=== PATIENT | female | born 1995 | race Native Hawaiian/Other Pacific Islander ===

== ENCOUNTER 2016-05-18 09:39 | Emergency (ER) | payer OTHER ==
[~2016-05-18] VITALS: Ht 162.6 cm; Wt 60.0 kg
[~2016-05-18 09:39] MED LIST: MACR100C2 PO; PREN1CAP7 PO; TERC20CR VAGINAL; ZITH250T PO
[2016-05-18 09:41] VITALS: BP 217/130; PULSE 108; RESP 20; TEMP 98; O2SAT 94
[2016-05-18 09:55] VITALS: BP 107/66; PULSE 96; RESP 16; TEMP 98.6; O2SAT 98
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
[2016-05-18] MEDS ORDERED: ACETAMINOPHEN 325 MG TAB PO ONE (12:15)
== END 2016-05-18 12:44 | disposition home or self-care (01) ==
LOC: NEPA 09:39
DX: S09.22XA Traumatic rupture of left ear drum, initial encounter (principal); S00.432A Contusion of left ear, initial encounter; Y04.2XXA Assault by strike against or bumped into by another person, initial encounter
CPT/HCPCS: 99284

== ENCOUNTER 2016-05-21 12:21 | Emergency (ER) | payer OTHER ==
[~2016-05-21] VITALS: Ht 162.6 cm; Wt 52.0 kg
[~2016-05-21 12:21] MED LIST changes: -MACR100C2 PO; -TERC20CR VAGINAL; -ZITH250T PO
[2016-05-21 12:32] VITALS: BP 93/52; PULSE 68; RESP 18; TEMP 98.9; O2SAT 100
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
== END 2016-05-21 14:16 | disposition home or self-care (01) ==
LOC: PHEFT 12:21
DX: S09.22XD Traumatic rupture of left ear drum, subsequent encounter (principal); Z3A.14 14 weeks gestation of pregnancy; W19.XXXD Unspecified fall, subsequent encounter; Y93.E9 Activity, other interior property and clothing maintenance
CPT/HCPCS: 99282

== ENCOUNTER 2016-11-14 12:17 | Inpatient (IN) | payer MEDICAID, OTHER ==
[2016-11-14] VITALS (65 sets, daily range): BP systolic 89–132; BP diastolic 41–83; PULSE 63–114; RESP 16–18; TEMP 98–98.6; O2SAT 99–100
[~2016-11-14] VITALS: Ht 162.6 cm; Wt 55.0 kg
[2016-11-14] MEDS ORDERED: LACTATED RINGER'S 1000 ML INJ 1,000 ML IV PRN (14:05)
[2016-11-14] MEDS ORDERED: LIDOCAINE HCL 1% 50 ML VIAL INFIL PRN (14:15)
[2016-11-14] MEDS ORDERED: LIDOCAINE HCL 1% 50 ML VIAL I-DERMAL PRN (14:15)
[2016-11-14] MEDS ORDERED: OXYTOCIN 30 UNITS-500ML PREMIX 500 ML IV ONE (14:15)
[2016-11-14] MEDS ORDERED: MINERAL OIL 10 ML VIAL TOPICAL PRN (14:15)
[2016-11-14] MEDS ORDERED: CITRIC ACID-SODIUM CITRATE LIQ 30 ML UDC PO SCH (14:15)
[2016-11-14] MEDS ORDERED: ONDANSETRON HCL 4 MG/2 ML VIAL IV PUSH PRN (14:15)
[2016-11-14] MEDS ORDERED: SODIUM CHLORID 0.9% 500 ML INJ 500 ML IV PRN (14:15)
[2016-11-14] MEDS ORDERED: SODIUM CHLOR 0.9% 1000 ML INJ 1,000 ML IV PRN (14:25)
--- NOTE | 2016-11-14 14:27 | HHI.HP ---
HPI Chief Complaint Contractions Date Seen: Nov 14, 2016 Time Seen: 14:00 Travel History International Travel<30 Days: No Contact w/Intl Traveler<30Days: No Known Affected Area: No History of Present Illness HPI 21 year old Taoism female at 40 weeks using [facility] for care presents complaining contractions no bleeding or leakage heart tones reactive contractions noted regularly Weeks Gestation: 40 Para: 0 : 1 History Social History Alcohol Use: No Tobacco Use: No Substance Abuse: No Allergies-Medications (Allergen,Severity, Reaction): Coded Allergies: No Known Allergies (Unverified , 06/12/16) Home Meds Active Scripts W/O Vit A W/ Fe Fumar (Citranatal [place]) 27-1-260 Mg Cap, 1 CAP PO DAILY for Nutritional Supplement, #60 CAP 5 Refills Prov:Nadia Horne CNM [facility] 05/01/16 Review of Systems General / Constitutional: No: Fever, Weight Gain, Chills, Other Eyes: No: Diploplia, Blurred Vision, Visual changes, Pain, Photophobia HENT: No: Headaches, Vertigo, Lightheadedness Cardiovascular: No: Irregular Rhythm, Chest Pain or Discomfort, Palpitations, Tachycardia, Syncope, Varicosities, Edema, Cyanosis Respiratory: No: Cough, Short of Breath, Other Gastrointestinal: No: Nausea, Vomiting, Diarrhea Genitourinary: No: Decreased Urinary Output, Oliguria Musculoskeletal: No: Limited ROM, Weakness, Cramping, Edema, Pain Skin: No Rash, No Itching, No Dryness, No Lumps, No Change in Pigmentation, No Change in Nails, No Alopecia, No Lesions Neurologic: No: Weakness, Dizziness, Syncope, Focal Abnormalities, Coordination Problem, Headache, Slurred Speech, Seizures Psychiatric: No: Depression, Suicidal Ideations, Homicidal Ideation Endocrine: No: Heat Intolerance, Cold Intolerance, Polydipsia, Polyuria, Other Physical Exam Narrative GENERAL: Well-nourished, well-developed patient. SKIN: Warm and dry. HEAD: Normocephalic and atraumatic. EYES: No scleral icterus. No injection or drainage. ENT: No nasal drainage noted. Mucous membranes pink. Airway patent. NECK: Supple, trachea midline. No JVD. CARDIOVASCULAR: Regular rate and rhythm without murmurs, gallops, or rubs. RESPIRATORY: Breath sounds equal bilaterally. No accessory muscle use. BREASTS: Bilateral exam showed no masses , no retractions, no nipple discharge. ABDOMEN/GI: Abdomen soft, non-tender, bowel sounds present, no rebound, no guarding Gravid to [-39] weeks size Fundal Height: [-39] GENITOURINARY: External Genitalia: intact and normal in appearance BUS glands: [-] Cervix: [-] Dilatation: [-6] Effacement: [-80] Station: [-3] Presentation: [vtx-] Membranes: [intact ] Uterine Contractions: [reg-] FHT's: Category: [-1] Baseline: [-133] Reactive: [yes-] Variability: [mod-] Decels: [-none] EXTREMITIES: No cyanosis or edema. BACK: Nontender without obvious deformity. No CVA tenderness. NEUROLOGICAL: Awake and alert. Motor and sensory grossly within normal limits. Five out of 5 muscle strength in all muscle groups. Normal speech. Caprini VTE Risk Assessment Caprini VTE Risk Assessment: No/Low Risk (score <= 1) Caprini Risk Assessment Model Point Value = 1 Point Value = 2 Point Value = 3 Point Value = 5 Age 41-60 Minor surgery BMI > 25 kg/m2 Swollen legs Varicose veins or History of unexplained or recurrent spontaneous Oral contraceptives or hormone replacement Sepsis (< 1 month) Serious lung disease, including pneumonia (< 1 month) Abnormal pulmonary function Acute myocardial infarction Congestive heart failure (< 1 month) History of inflammatory bowel disease Medical patient at bed rest Age 61-74 Arthroscopic surgery Major open surgery (> 45 min) Laparoscopic surgery (> 45 min) Malignancy Confined to bed (> 72 hours) Immobilizing plaster cast Central venous access Age >= 75 History of VTE Family history of VTE Factor V Leiden Prothrombin [id number] Lupus anticoagulant Anticardiolipin antibodies Elevated serum homocysteine Heparin-induced thrombocytopenia Other congenital or acquired thrombophilia Stroke (< 1 month) Elective arthroplasty Hip, pelvis, or leg fracture Acute spinal cord injury (< 1 month) Prophylaxis Regimen Total Risk Factor Score Risk Level Prophylaxis Regimen 0-1 Low Early ambulation 2 Moderate Order ONE of the following: *Sequential Compression Device (SCD) *Heparin 5000 units SQ BID 3-4 Higher Order ONE of the following medications: *Heparin 5000 units SQ TID *Enoxaparin/Lovenox 40 mg SQ daily (WT < 150 kg, CrCl > 30 mL/min) *Enoxaparin/Lovenox 30 mg SQ daily (WT < 150 kg, CrCl > 10-29 mL/min) *Enoxaparin/Lovenox 30 mg SQ BID (WT < 150 kg, CrCl > 30 mL/min) AND/OR *Sequential Compression Device (SCD) 5 or more Highest Order ONE of the following medications: *Heparin 5000 units SQ TID (Preferred with Epidurals) *Enoxaparin/Lovenox 40 mg SQ daily (WT < 150 kg, CrCl > 30 mL/min) *Enoxaparin/Lovenox 30 mg SQ daily (WT < 150 kg, CrCl > 10-29 mL/min) *Enoxaparin/Lovenox 30 mg SQ BID (WT < 150 kg, CrCl > 30 mL/min) AND *Sequential Compression Device (SCD) Data Data Orders Orders Ob (2e) Additional Admit Info (11/14/16 13:59) Admit To Inpatient (11/14/16 ) Code Status (11/14/16 14:05) Vital Signs (Adult) .Per protocol (11/14/16 14:05) Activity Oob Ad Maru (11/14/16 14:05) Heart (11/14/16 14:05) Amnioinfusion (11/14/16 14:05) Urinary Catheter Management .ONCE (11/14/16 14:05) Diet Npo (11/14/16 Dinner) Lactated Ringer's 1000 Ml Inj (Lr 1000 M (11/14/16 14:05) Lactated Ringer's 1000 Ml Inj (Lr 1000 M (11/14/16 14:05) Sodium Chlorid 0.9% 500 Ml Inj (Ns 500 M (11/14/16 14:15) Sodium Chlor 0.9% 1000 Ml Inj (Ns 1000 M (11/14/16 14:25) Lidocaine 1% Inj (50 Ml) (Xylocaine 1% I (11/14/16 14:15) Citric Acid-Sodium Citrate Liq (Bicitra (11/14/16 14:15) Ondansetron Inj (Zofran Inj) (11/14/16 14:15) Fentanyl Inj (Fentanyl Inj) (11/14/16 14:15) Fentanyl Inj (Fentanyl Inj) (11/14/16 14:15) Complete Blood Count With Diff (11/14/16 14:05) Hold Clot (11/14/16 14:05) Abo/Rh Blood Type (11/14/16 14:05) Urinalysis - C+S If Indicated (11/14/16 14:05) Resp Oxygen Non Rebreathe Mask (11/14/16 ) ^ Epidural / Intrathecal Infus (11/14/16 14:05) Oxytocin 30 Units-500ml Premix (Pitocin (11/14/16 14:15) Lidocaine 1% Inj (50 Ml) (Xylocaine 1% I (11/14/16 14:15) Light Mineral Oil (Muri-Lube Oil) (11/14/16 14:15) Inpatient Certification (11/14/16 ) Assessment/Plan Assessment and Plan Patient is 21-year-old muscle patient is 40 weeks seen Sarina Deleon for care. Presents in labor. She initially seen in OB ED 74 cm. She was monitored for greater than 1 hour and noted to be a repeat exam of 6 cm and status post patient is now going into labor. NST is reactive contractions are noted that we'll admit for labor management Vladimir Almanza II, MD Nov 14, 2016 14:27
[2016-11-14 14:29] LABS: BLOOD, URINE NEG (NEG); COMMENT (UR) CULT NOT INDICATED; CULTURE IF INDICATED CULT NOT INDICATED; GLUCOSE,URINE NEG (NEG); KETONE, URINE NEG (NEG); MUCUS URINE FEW /lpf (OCC); NITRITE,URINE NEG (NEG); SQUAMOUS EPITHELIAL CELL URINE <1 /hpf (0-5); URINE COLOR LIGHT-YELLOW (YELLW/STRAW)
[2016-11-14 14:37] LABS: AUTOMATED NEUTROPHIL # 8.7 TH/MM3 (1.8-7.7); BASOPHIL % 0.2 % (0.0-2.0); EOSINOPHIL # 0.1 TH/MM3 (0-0.4); EOSINOPHIL % 0.5 % (0.0-4.0); HEMATOCRIT 31.6 % (35.0-46.0); LYMPH % 15.1 % (9.0-44.0); LYMPHOCYTE # 1.7 TH/MM3 (1.0-4.8); MEAN CELL VOLUME 84.1 FL (80.0-100.0); MEAN CORPUSCULAR HEMOGLOBIN 26.8 PG (27.0-34.0); MEAN CORPUSCULAR HGB CONC 31.9 % (32.0-36.0); MONO % 7.6 % (0.0-8.0); NEUT % 76.6 % (16.0-70.0); PLATELET COUNT 215 TH/MM3 (150-450); RED BLOOD COUNT 3.76 MIL/MM3 (4.00-5.30); RED CELL DISTRIBUTION WIDTH 14.6 % (11.6-17.2); WHITE BLOOD COUNT 11.4 TH/MM3 (4.0-11.0)
[2016-11-14] MEDS: LACTATED RINGER'S 1000 ML INJ 1,000 ML IV SCH ×2 (14:38→15:28)
[2016-11-14 14:40] LABS: HEMO FLAGS AUTO DIFF
[2016-11-14 15:28] LABS: BANDS 5 % (0-6); EOSINOPHILS 1 % (0-4); METAMYELOCYTES 2 % (0-1); NEUTROPHIL # MANUAL DIFF 8.8 TH/MM3 (1.8-7.7); POLYS (SEG NEUTROPHILS) 70 % (16-70); WBC DIFF SAMPLE 100
[2016-11-14 15:29] LABS: PLATELET ESTIMATE SMEAR NORMAL (NORMAL)
[2016-11-14 15:30] LABS: PLATELET MORPHOLOGY ENLARGED (NORMAL); SCAN/DIFF FINAL DIFF MANUAL
[2016-11-14] MEDS ORDERED: DIPHTH/TETANUS/ACEL PERTUSSIS (BOOSTER) 0.5 ML VIAL/PFS IM ONE (16:00)
[2016-11-14] MEDS ORDERED: MEASLES, MUMPS, RUBELLA VACCINE 0.5 ML VIAL SQ ONE (16:00)
[2016-11-14] MEDS ORDERED: ePHEDrine/NS 25 MG/5 ML SYR ONE (16:17)
[2016-11-14] MEDS ORDERED: fentaNYL 2MCG-BUPIV 0.125% INJ 100 ML ONE (16:17)
[2016-11-14] MEDS ORDERED: OXYTOCIN 30 UNITS-500ML PREMIX 500 ML IV SCH ×2 (18:15→20:45)
[2016-11-14] MEDS ORDERED: ePHEDrine/NS 25 MG/5 ML SYR IV PUSH PRN (19:00)
[2016-11-14] MEDS ORDERED: fentaNYL 2MCG-BUPIV 0.125% 100 ML EPIDURAL SCH (19:00)
[2016-11-14] MEDS ORDERED: DO NOT ADMINISTER ANTICOAGULANTS PRN (19:00)
[2016-11-14] MEDS ORDERED: NO SYSTEM NARCOTICS PRN (19:00)
--- NOTE | 2016-11-14 20:38 | PD.OB.DELI ---
Weeks gestation: 40 Gest age assessed date: Nov 14, 2016 Gest age assessed time: 12:17 Pt started active labor?: Yes Active labor start date: Nov 14, 2016 Active labor start time: 07:00 Medical induction of labor?: No Artificial rupture of membrane: No Anesthesia: Epidural Episiotomy: Midline Vaginal Delivery: Normal Presentation: Occiput anterior Nuchal Cord: x1 Delayed cord clamping (45 sec): Yes Infant: Male, Single Delivery date: Nov 14, 2016 Delivery time: 20:24 One Minute : 8 Five Minute : 9 Weight: 3085 Placenta: Spontaneous delivery Laceration: Episiotomy, 2 deg Repair: Chromic running Estimated blood loss: 200 Vladimir Almanza II, MD Nov 14, 2016 20:38
[2016-11-14] MEDS ORDERED: WITCH HAZEL 50%/GLYCERIN 12.5% 40 PAD JAR TOPICAL PRN (20:45)
[2016-11-14] MEDS ORDERED: ZOLPIDEM TARTRATE 5 MG TAB PO PRN (20:45)
[2016-11-14] MEDS ORDERED: ACETAMINOPHEN 325 MG TAB PO PRN (20:45)
[2016-11-14] MEDS ORDERED: ALUMINUM/MAGNESIUM/SIMETH 30 ML CUP PO PRN (20:45)
[2016-11-14] MEDS ORDERED: SODIUM CHLORIDE 0.9% FLUSH 10 ML FLUSH IV FLUSH PRN (20:45)
[2016-11-14] MEDS ORDERED: BENZOCAINE 20% TOPICAL SPRAY 60 ML CAN TOPICAL PRN (20:45)
[2016-11-14] MEDS ORDERED: ONDANSETRON ODT 4 MG TAB PO PRN (20:45)
[2016-11-14] MEDS ORDERED: DOCUSATE SODIUM 50 MG/SENNA 8.6 MG TAB PO PRN (20:45)
[2016-11-14] MEDS ORDERED: SODIUM CHLORIDE 0.9% FLUSH 10 ML FLUSH IV FLUSH SCH (21:00)
[2016-11-15 07:45] VITALS: BP 94/54; PULSE 83; RESP 18; TEMP 98.2
[2016-11-15] MEDS: IBUPROFEN 600 MG TAB PO PRN ×2 (07:59→20:28)
[2016-11-15] MEDS: oxyCODONE/ACETAMINOPHEN 5 MG/325 MG TAB PO PRN ×2 (07:59→20:28)
--- NOTE | 2016-11-15 09:32 | HHI.OB ---
Subjective Post Day: 1 Remarks day #1. AFVSS overnight. Pain controlled with medications. Decreased lochia. Denies dysuria. No breast tenderness. She is feeding the baby via breast/bottle. Appetite good. No nausea or vomiting. Endorses flatus. No bowel movement. Ambulating well. Denies calf pain, shortness of breath, or cough. Otherwise, she is doing well this morning and has no other complaints. Objective Vitals/I&O Vital Signs Date Time Temp Pulse Resp B/P (MAP) Pulse Ox O2 Delivery O2 Flow Rate FiO2 11/14/16 18:41 16 Objective Remarks GENERAL: Well-nourished, well-developed patient. CARDIOVASCULAR: Regular rate and rhythm without murmurs, gallops, or rubs. RESPIRATORY: Breath sounds equal bilaterally. No accessory muscle use. ABDOMEN/GI: Abdomen soft, non-tender. Fundus: Firm, non-tender at umbilicus. GENITOURINARY: Light to moderate bleeding. EXTREMITIES: No cyanosis or edema, non-tender, without signs of DVT. Medications and IVs Current Medications Medications (Trade) Dose Ordered Sig/[place]ana Route Start Time Stop Time Status Last Admin Lactated Ringer's 1,000 ml @ 125 mls/hr Q8H IV 11/14/16 14:05 11/14/16 15:28 Lactated Ringer's 1,000 ml @ 3,000 mls/hr Q20M PRN IV 11/14/16 14:05 Sodium Chloride 500 ml @ 1,000 mls/hr ONCE PRN IV 11/14/16 14:15 11/15/16 14:14 Sodium Chloride 1,000 ml @ 100 mls/hr Q10H PRN IV 11/14/16 14:25 (Xylocaine 1% Inj (50 ml)) 0.1 ml UNSCH X1 PRN I-DERMAL 11/14/16 14:15 11/17/16 14:14 (Bicitra Liq) 30 ml SYNTHETIC DEPARTMENT SUPERVISOR PO 11/14/16 14:15 11/18/16 14:14 (Zofran Inj) 4 mg Q6H PRN IV PUSH 11/14/16 14:15 (fentaNYL INJ) 50 mcg Q1H PRN IV PUSH 11/14/16 14:15 11/14/16 14:37 (fentaNYL INJ) 100 mcg Q1H PRN IV PUSH 11/14/16 14:15 (Xylocaine 1% Inj (50 ml)) 10 ml UNSCH X1 PRN INFIL 11/14/16 14:15 11/16/16 14:14 (Muri-Lube Oil) 10 ml UNSCH PRN TOPICAL 11/14/16 14:15 11/14/16 20:45 Oxytocin 500 ml @ 1 mls/hr TITRATE IV 11/14/16 18:15 11/14/16 20:42 Miscellaneous Information No systemic narcotics to be given except... UNSCH PRN .XX 11/14/16 19:00 11/15/16 18:59 Miscellaneous Information DO NOT ADMINISTER ANY ANTICOAGUL... UNSCH PRN .XX 11/14/16 19:00 11/15/16 18:59 Fentanyl/ Bupivacaine HCl 100 ml @ 0 mls/hr TITRATE EPIDURAL 11/14/16 19:00 11/14/16 19:09 (ePHEDrine/NS 25 MG/5 ML SYR) 10 mg UNSCH PRN IV PUSH 11/14/16 19:00 11/15/16 18:59 (NS Flush) 2 ml BID IV FLUSH 11/14/16 21:00 11/14/16 21:39 (NS Flush) 2 ml UNSCH PRN IV FLUSH 11/14/16 20:45 (Tylenol) 650 mg Q4H PRN PO 11/14/16 20:45 (Motrin) 600 mg Q6H PRN PO 11/14/16 20:45 11/15/16 07:59 (Percocet 5-325 Mg) 1 tab Q4H PRN PO 11/14/16 20:45 11/15/16 07:59 (Americaine 20% Top Spr) 1 spray Q4H PRN TOPICAL 11/14/16 20:45 (Tucks Pads) 1 applic QID PRN TOPICAL 11/14/16 20:45 (Tila-Colace) 2 tab Q12H PRN PO 11/14/16 20:45 11/15/16 07:59 (Ambien) 5 mg HS PRN PO 11/14/16 20:45 (Mag-Al Plus Susp Liq) 15 ml Q8H PRN PO 11/14/16 20:45 (Zofran Odt) 4 mg Q6H PRN PO 11/14/16 20:45 Assessment/Plan Assessment and Plan 21y/o who is PPD# 1 s/p . -Continue routine care. -Percocet and Motrin PRN pain. -Encouraged OOB. Advised pelvic rest for 6 wks. -Will need a f/u appt. within 6 wks. -Re: ctrl, she is undecided -D/c in 1-2 more days. dw OB attending Eliseo Hamm MD, R2 Nov 15, 2016 09:32
[2016-11-15 18:21] VITALS: BP 109/63; PULSE 83; RESP 19; TEMP 97.1
[2016-11-15 22:28] VITALS: BP 105/65; PULSE 79; RESP 16; TEMP 98.3
[2016-11-16 07:40] VITALS: BP 101/67; PULSE 86; RESP 18; TEMP 98.1
[2016-11-16] MEDS ORDERED: SENN1TAB PO (10:02)
[2016-11-16] MEDS ORDERED: IBUP-232 PO (10:02)
--- NOTE | 2016-11-16 10:03 | HHI.DCPOC ---
Discharge Care Plan Diagnosis: (1) care following vaginal delivery Report Symptoms to Your Doctor -Temperature above 100.5 degrees -Redness, of incision or excessive or foul smelling drainage -Unusual pain or calf pain -Increased vaginal bleeding -Painful or difficulty urinating -Feelings of extreme sadness or anxiety after 2 weeks Goals to Promote Your Health * To prevent worsening of your condition and complications * To maintain your health at the optimal level Directions to Meet Your Goals Take your medications as prescribed Follow your dietary instruction Follow activity as directed Ensure plenty of rest for recovery Drink fluids for hydration Keep your appointments as scheduled Take your immunizations and boosters as scheduled If your symptoms worsen call your PCP, if no PCP go to Urgent Care Center or Emergency Room Smoking is Dangerous to Your Health. Avoid second hand smoke Call the 24-hour crisis hotline for domestic abuse at Eliseo Hamm MD, R2 Nov 16, 2016 10:03
[2016-11-16] MEDS: IBUPROFEN 600 MG TAB PO PRN (12:37)
[2016-11-16] MEDS: oxyCODONE/ACETAMINOPHEN 5 MG/325 MG TAB PO PRN (12:37)
--- NOTE | 2016-11-16 13:17 | HHI.OB ---
Subjective Post Day: 2 Remarks day # 2 s/p vaginal delivery. AFVSS overnight. Pain minimal. Drinking fluids, ambulating to the bathroom. No bowel movement, passing flatus. No other complaints. Objective Vitals/I&O Vital Signs Date Time Temp Pulse Resp B/P (MAP) Pulse Ox O2 Delivery O2 Flow Rate FiO2 11/15/16 22:28 98.3 79 16 105/65 (78) 11/15/16 18:21 83 19 109/63 (78) 11/15/16 18:21 97.1 Objective Remarks GENERAL: Well-nourished, well-developed patient. CARDIOVASCULAR: Regular rate and rhythm without murmurs, gallops, or rubs. RESPIRATORY: Breath sounds equal bilaterally. No accessory muscle use. ABDOMEN/GI: Abdomen soft, non-tender. Fundus: Firm, non-tender at umbilicus. GENITOURINARY: Light to moderate bleeding. EXTREMITIES: No cyanosis or edema Medications and IVs Current Medications Medications (Trade) Dose Ordered Sig/[place] Route Start Time Stop Time Status Last Admin Lactated Ringer's 1,000 ml @ 125 mls/hr Q8H IV 11/14/16 14:05 11/14/16 15:28 Lactated Ringer's 1,000 ml @ 3,000 mls/hr Q20M PRN IV 11/14/16 14:05 Sodium Chloride 1,000 ml @ 100 mls/hr Q10H PRN IV 11/14/16 14:25 (Xylocaine 1% Inj (50 ml)) 0.1 ml UNSCH X1 PRN I-DERMAL 11/14/16 14:15 11/17/16 14:14 (Bicitra Liq) 30 ml MASTER STEAM YACHT PO 11/14/16 14:15 11/18/16 14:14 (Zofran Inj) 4 mg Q6H PRN IV PUSH 11/14/16 14:15 (fentaNYL INJ) 50 mcg Q1H PRN IV PUSH 11/14/16 14:15 11/14/16 14:37 (fentaNYL INJ) 100 mcg Q1H PRN IV PUSH 11/14/16 14:15 (Xylocaine 1% Inj (50 ml)) 10 ml UNSCH X1 PRN INFIL 11/14/16 14:15 11/16/16 14:14 (Muri-Lube Oil) 10 ml UNSCH PRN TOPICAL 11/14/16 14:15 11/14/16 20:45 Oxytocin 500 ml @ 1 mls/hr TITRATE IV 11/14/16 18:15 11/14/16 20:42 Fentanyl/ Bupivacaine HCl 100 ml @ 0 mls/hr TITRATE EPIDURAL 11/14/16 19:00 11/14/16 19:09 (NS Flush) 2 ml BID IV FLUSH 11/14/16 21:00 11/14/16 21:39 (NS Flush) 2 ml UNSCH PRN IV FLUSH 11/14/16 20:45 (Tylenol) 650 mg Q4H PRN PO 11/14/16 20:45 (Motrin) 600 mg Q6H PRN PO 11/14/16 20:45 11/16/16 12:37 (Percocet 5-325 Mg) 1 tab Q4H PRN PO 11/14/16 20:45 11/16/16 12:37 (Americaine 20% Top Spr) 1 spray Q4H PRN TOPICAL 11/14/16 20:45 11/15/16 21:48 (Tucks Pads) 1 applic QID PRN TOPICAL 11/14/16 20:45 11/15/16 21:48 (Tila-Colace) 2 tab Q12H PRN PO 11/14/16 20:45 11/15/16 07:59 (Ambien) 5 mg HS PRN PO 11/14/16 20:45 (Mag-Al Plus Susp Liq) 15 ml Q8H PRN PO 11/14/16 20:45 (Zofran Odt) 4 mg Q6H PRN PO 11/14/16 20:45 Assessment/Plan Assessment and Plan 21y/o who is PPD# 2 s/p . -Continue routine care. -Percocet and Motrin PRN pain. -Encouraged OOB. Advised pelvic rest for 6 wks. -Will need a f/u appt. within 6 wks. -Patient doing well, D/c today dw Rani Friedman MD R1 Nov 16, 2016 13:17
== END 2016-11-16 14:43 | disposition home or self-care (01) | DRG 775 ==
LOC: HOBED 12:17 → H2EA 14:05 → H1EA 22:25
PROVIDERS: ADMIT Obstetrics & Gynecology Maternal & Fetal Medicine; ATTEND Obstetrics & Gynecology Maternal & Fetal Medicine
PROC: 10E0XZZ Delivery of Products of Conception, External Approach (ICD-10-PCS; principal; 2016-11-14)
PROC: 0KQM0ZZ Repair Perineum Muscle, Open Approach (ICD-10-PCS; 2016-11-14)
PROC: 0W8NXZZ Division of Female Perineum, External Approach (ICD-10-PCS; 2016-11-14)
DX: O70.1 Second degree perineal laceration during delivery (principal); Z37.0 Single live birth; O69.81X0 Labor and delivery complicated by cord around neck, without compression, not applicable or unspecified; Z3A.40 40 weeks gestation of pregnancy
CPT/HCPCS: 59025; 81001; 85007; 85027; 86900; 86901; J2590; J3010; J7120

== ENCOUNTER 2017-01-20 01:24 | Emergency (ER) | payer MEDICAID, OTHER ==
[~2017-01-20 01:24] MED LIST changes: +IBUP-232 PO; -PREN1CAP7 PO; +SENN1TAB PO
[2017-01-20 01:25] VITALS: BP 111/55; PULSE 75; RESP 18; TEMP 98.8; O2SAT 100
[2017-01-20] MEDS ORDERED: AMOX875T PO (02:01)
--- NOTE | 2017-01-20 02:03 | PD ---
HPI Chief Complaint: Cold / Flu Symptoms Time Seen by Provider: 02:00 Travel History International Travel<30 days: No Contact w/Intl Traveler<30days: No Traveled to known affect area: No History of Present Illness HPI Patient speaks Yakut, she declines official sign language interpreter. She prefers that her who speaks Wolof and Yakut sign language interpreter for her. 21-year-old female presents with right ear pain, sore throat and cough. Symptoms started 2-3 days ago. She has been using NyQuil but cough persists which prompted evaluation. Denies fevers or chills. Her recently had similar symptoms. Denies recent travel, drainage from the ear. She has no other complaints. PFSH Past Medical History Medical History: Denies Significant Hx Diminished Hearing: No ?: Not Past Surgical History Surgical History: No Previous Surgery Social History Alcohol Use: No Tobacco Use: No Substance Use: No Allergies-Medications (Allergen,Severity, Reaction): Coded Allergies: No Known Allergies (Unverified , 06/12/16) Reported Meds & Prescriptions Reported Meds & Active Scripts Active Amoxicillin 875 Mg Tab 875 Mg PO BID 10 Days Senna Plus 8.6-50 mg (Sennosides-Docusate Sodium) 8.6 Mg-50 Mg Tab 2 Tab PO Q12H PRN Ibuprofen 600 Mg Tab 600 Mg PO Q6H PRN Review of Systems Except as stated in HPI: all other systems reviewed are Neg Physical Exam Narrative GENERAL: Well-nourished female in no acute distress SKIN: Warm and dry. HEAD: Atraumatic. Normocephalic. EYES: Pupils equal and round. No scleral icterus. No injection or drainage. ENT: No nasal bleeding or discharge. Mucous membranes pink and moist. Right tympanic membrane is obviously bulging and erythematous. Oropharynx is mildly erythematous without exudate. NECK: Trachea midline. No JVD. CARDIOVASCULAR: Regular rate and rhythm. No murmur appreciated. RESPIRATORY: No accessory muscle use. Clear to auscultation. Breath sounds equal bilaterally. Data Data Last Documented VS Vital Signs Date Time Temp Pulse Resp B/P (MAP) Pulse Ox O2 Delivery O2 Flow Rate FiO2 01/20/17 01:25 98.8 75 18 111/55 (73) 100 Room Air Orders Orders Influenzae A/B Antigen (01/20/17 01:45) Group A Rapid Strep Screen (01/20/17 01:45) Strep Culture (Group A) (01/20/17 01:50) Ed Discharge Order (01/20/17 02:51) [facility] Medical Decision Making Medical Screen Exam Complete: Yes Emergency Medical Condition: Yes Medical Record Reviewed: Yes Differential Diagnosis Right otitis media, otitis externa, pharyngitis, bronchitis, pneumonia, influenza Narrative Course Examination is consistent with upper respiratory infection with right otitis media. She is being discharged with amoxicillin. Diagnosis Primary Impression: Right otitis media Additional Impression: Upper respiratory infection Additional Instructions: Medication as prescribed. Stay well hydrated well-nourished. Return for any emergent medical conditions. Med/Other Pt SpecificInfo: Prescription(s) given Scripts Amoxicillin (Amoxicillin) 875 Mg Tab 875 MG PO BID for Infection for 10 Days, #20 TAB 0 Refills Prov: Александр Ramirez MD 01/20/17 Disposition: 01 DISCHARGE HOME Condition: Stable Nael Snider Jan 20, 2017 02:03
== END 2017-01-20 03:24 | disposition home or self-care (01) ==
LOC: NEPD 01:24
DX: H65.91 Unspecified nonsuppurative otitis media, right ear (principal); J06.9 Acute upper respiratory infection, unspecified
CPT/HCPCS: 87081; 87804; 87880; 99283

== ENCOUNTER 2017-01-22 15:13 | Emergency (ER) | payer SELFPAY ==
[~2017-01-22] VITALS: Ht 165.1 cm; Wt 60.0 kg
[~2017-01-22 15:13] MED LIST changes: +AMOX875T PO
[2017-01-22 15:14] VITALS: BP 112/68; PULSE 87; RESP 16; TEMP 99; O2SAT 98
--- NOTE | 2017-01-22 16:58 | PD ---
HPI Chief Complaint: ENT Complaint Time Seen by Provider: 16:08 Travel History International Travel<30 days: No Contact w/Intl Traveler<30days: No Traveled to known affect area: No History of Present Illness HPI 21-year-old female presents to the emergency room for the second time in 2 days for reevaluation of right ear pain. She speaks Azeri and universal grinder set up operator was used throughout history and physical exam. She was seen in ER 2 days ago for the same and discharged with amoxicillin. She has been taking her amoxicillin as directed but her ear pain persists. Denies any drainage. She has felt hot but has no objective fevers. She has associated sore throat but denies any other serious complaints. No chronic medical conditions. Takes medication for depression. History Past Medical Histgory LMP: 12/2016 Social History Alcohol Use: No Tobacco Use: No Allergies-Medications (Allergen,Severity, Reaction): Coded Allergies: No Known Allergies (Unverified , 06/12/16) Reported Meds & Prescriptions Reported Meds & Active Scripts Active Amoxicillin 875 Mg Tab 875 Mg PO BID 10 Days Senna Plus 8.6-50 mg (Sennosides-Docusate Sodium) 8.6 Mg-50 Mg Tab 2 Tab PO Q12H PRN Ibuprofen 600 Mg Tab 600 Mg PO Q6H PRN Review of Systems Except as stated in HPI: all other systems reviewed are Neg Physical Exam Narrative GENERAL: Well-nourished, well-developed female in no acute distress. Afebrile. Ambulatory. SKIN: Focused skin assessment warm/dry. HEAD: Normocephalic. EYES: No scleral icterus. No injection or drainage. ENT: Mucosa pink and moist. Mild to moderate erythema of the pharynx without edema or exudates. No uvular edema. No uvular, palatal, or tonsillar deviation. Airway patent. EARS: Bilateral pinnae and external canals appear within normal limits. Left tympanic membrane without erythema, dullness or perforation. Right tympanic membrane is erythematous with mild effusion. No perforation. NECK: Supple, trachea midline. No JVD or lymphadenopathy. CARDIOVASCULAR: Regular rate and rhythm without murmurs, gallops, or rubs. RESPIRATORY: Breath sounds equal bilaterally. No accessory muscle use. No crackles, rales, wheezes, or rhonchi. Data Data Last Documented VS Vital Signs Date Time Temp Pulse Resp B/P (MAP) Pulse Ox O2 Delivery O2 Flow Rate FiO2 01/22/17 15:14 99.0 87 16 112/68 (83) 98 Room Air MDM Medical Screen Exam Complete: Yes Emergency Medical Condition: No Differential Diagnosis Viral otitis media Narrative Course 21-year-old female presents to the emergency room 2 times in 2 days for evaluation of right ear pain. Patient seeks Azeri universal grinder set up operator was used throughout history and physical exam. She has associated upper respiratory symptoms. Previously she was prescribed 875 mg amoxicillin and has been taking as directed. Reports persistence of pain but no drainage. Physical exam reveals erythema of the right tympanic membrane without perforation or significant effusion. She was informed that it can take a while for the amoxicillin to penetrate the ear and improve symptoms. Also informed it may be viral and antibiotics will not help. Told to follow up with an ENT if symptoms persist. There are no urgent or emergent medical conditions at this time A medical screening exam was performed: At the time of evaluation the presenting medical condition was determined not to be of an emergent nature. The patient was given the option of receiving additional care, but declined. Patient was given options for additional community resources from which to obtain care. The Patient Has Been advised to seek medical attention for their presenting complaint. The patient has been advised to return to the ER at any time if an emergent condition develops. Primary Impression: Encounter for medical screening examination Disposition: 01 DISCHARGE HOME Condition: Stable Angy Lowery Jan 22, 2017 16:58
== END 2017-01-22 16:50 | disposition left against medical advice (07) ==
LOC: NEPK 15:13
DX: H92.01 Otalgia, right ear (principal); J02.9 Acute pharyngitis, unspecified
CPT/HCPCS: 99281

== ENCOUNTER 2017-02-15 22:51 | Emergency (ER) | payer SELFPAY ==
[~2017-02-15] VITALS: Ht 162.6 cm; Wt 60.0 kg
[2017-02-15 22:53] VITALS: BP 107/59; PULSE 68; RESP 14; TEMP 98; O2SAT 98
[2017-02-15] MEDS ORDERED: TRAM50TA PO (23:33)
--- NOTE | 2017-02-15 23:39 | PD ---
HPI Chief Complaint: ENT Complaint Time Seen by Provider: 23:17 Travel History International Travel<30 days: No Contact w/Intl Traveler<30days: No Traveled to known affect area: No History of Present Illness HPI This patient complains of left ear pain. Duration is 7 months. She was diagnosed with ruptured left tympanic membrane 7 months ago but due to her being at the time nothing specific was recommended. She has daily pain. She reports hearing is normal. No drainage. Symptoms severity is moderate. She speaks Ukrainian but her translates fluently and does not desire formal translation services. PFSH Past Medical History Medical History: Denies Significant Hx Diminished Hearing: No Tetanus Vaccination: Unknown ?: Not LMP: 02/01/2017 Past Surgical History Surgical History: No Previous Surgery Social History Alcohol Use: No Tobacco Use: No Substance Use: No Allergies-Medications (Allergen,Severity, Reaction): Coded Allergies: No Known Allergies (Unverified , 06/12/16) Reported Meds & Prescriptions Reported Meds & Active Scripts Active Tramadol (Tramadol HCl) 50 Mg Tab 50 Mg PO Q6H PRN Amoxicillin 875 Mg Tab 875 Mg PO BID 10 Days Senna Plus 8.6-50 mg (Sennosides-Docusate Sodium) 8.6 Mg-50 Mg Tab 2 Tab PO Q12H PRN Ibuprofen 600 Mg Tab 600 Mg PO Q6H PRN Review of Systems General / Constitutional: No: Fever HENT: No: Headaches Cardiovascular: No: Chest Pain or Discomfort Respiratory: No: Cough Physical Exam Narrative NECK: Symmetrical appearance, midline trachea. No mass or crepitus. Thyroid without enlargement, tenderness, or mass. Right TM normal Left TM has large hole in it, no drainage. Normal ear canal and pinna Psych: Normal mood and affect. Normal insight and judgment. Data Data Last Documented VS Vital Signs Date Time Temp Pulse Resp B/P (MAP) Pulse Ox O2 Delivery O2 Flow Rate FiO2 02/15/17 22:53 98.0 68 14 107/59 (75) 98 Room Air MDM Medical Decision Making Medical Screen Exam Complete: Yes Emergency Medical Condition: Yes Medical Record Reviewed: Yes Differential Diagnosis TM rupture, otitis, foreign body Narrative Course I have reviewed the patient's electronic medical record. 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 Keep left ear dry Med/Other Pt SpecificInfo: Prescription(s) given Scripts Tramadol (Tramadol) 50 Mg Tab 50 MG PO Q6H Y for PAIN, #20 TAB 0 Refills Prov: Kingstno Pop MD 02/15/17 Disposition: 01 DISCHARGE HOME Condition: Stable Kingston Pop MD Feb 15, 2017 23:39
== END 2017-02-15 23:58 | disposition home or self-care (01) ==
LOC: NEPD 22:51
DX: H72.92 Unspecified perforation of tympanic membrane, left ear (principal)
CPT/HCPCS: 99283